=== PATIENT | male | born 1960 | race African-American/Black ===

== ENCOUNTER 2016-07-17 06:09 | Inpatient (IN) | payer MEDICARE, OTHER ==
--- NOTE | ~2016-07-17 | OP ---
Record Of Operation [facility] [address] [place]. [address] NAME: WANDA MARIANO : 62 STATUS : ADM IN PAT#: [id number] AGE: 56 ADM/REG DATE : 07/17/16 MR#: [id number] REPORT SERV DATE: 07/17/16 DICTATED BY: ARJUN ROSALES DATE: 07/17/16 REPORT STATUS : Draft TRANSCRIBED BY: MODL DATE: 07/17/16 DATE OF PROCEDURE: 07/17/2016 SURGEON: Arjun Rosales MD TITLE OF OPERATION: Left laparoscopic radical nephrectomy. PREOPERATIVE DIAGNOSES: 1. Left renal mass. 2. Polycystic kidney disease. 3. End-stage renal disease. POSTOPERATIVE DIAGNOSES: 1. Left renal mass. 2. Polycystic kidney disease. 3. End-stage renal disease. INDICATIONS: Mr. Mariano is a 56-year-old male with multiple renal masses in a nonfunctioning left polycystic kidney. He is here for left laparoscopic radical nephrectomy. ANESTHESIA: General. COMPLICATIONS: None. IMPLANTS: None. SPECIMENS: Left kidney. NARRATIVE: The patient was brought to the operating room, identified by his wristband. General anesthesia was induced, and Ancef was given for preoperative antibiotics. He was placed in the modified left flank position and secured to the bed with pads and tapes. A Vega catheter was not placed as he is anuric. He was then prepped and draped in sterile fashion. The abdomen was insufflated to a pressure of 15 mmHg using a Veress needle. A 12 mm incision was made in his upper left quadrant. A 12 mm port was placed under direct vision. The abdomen was inspected. There was a very large left kidney, and no other obvious abnormalities. A second 12 mm port was placed beneath the costal margin on the left side, and a third 12 mm port was placed in the left lower quadrant. A 15 mm port was placed in the upper midline. The patient was then rotated. The operation was begun by dropping the colon along the white line of Toldt, exposing the retroperitoneum. Initially, the colon was up and lateral to the kidney and actually invisible given the large mass size. Therefore, the initial incision was made through the colonic mesentery. There was no vascular damage at all. The colon was well vascularized. Once I realized this had happened, I took my dissection anteriorly and released the colon along the white line of Toldt, exposing the retroperitoneum. This was reflected inferiorly to expose the aorta. The splenorenal ligaments were sharply divided. The pancreas was reflected off the kidney Record Of Operation [facility] [address] [place]. [address] NAME: WANDA MARIANO : 62 STATUS : ADM IN PAT#: [id number] AGE: 56 ADM/REG DATE : 07/17/16 MR#: [id number] REPORT SERV DATE: 07/17/16 DICTATED BY: ARJUN ROSALES DATE: 07/17/16 REPORT STATUS : Draft TRANSCRIBED BY: MODL DATE: 07/17/16 without damaging the structure. The masses were not upper pole. Therefore, I entered the Gerota's fascia in between the kidney and adrenal gland, and the adrenal gland was spared. Next, we identified the ureter and lifted the ureter up off the psoas muscle. The kidney was lifted off its attachments. All fibrofatty tissue surrounding a lower pole artery was divided with a LigaSure device. The artery was clipped and then stapled. Next, the hilum was dissected free. The hilum was then stapled en bloc with a 35 mm automatic stapler. Next, dissection was carried inferiorly down over the iliacs, where the kidney was lifted up off the iliacs. The ureter was clipped and divided. The lateral attachments of the kidney were then taken with a LigaSure device. The kidney was then free of all attachments and placed into a large EndoCatch bag. Of note, this operation took about four hours. The typical time is about two hours. The increased complexity was due to the incredibly large size of the kidney. Next, the colon was inspected and found to be free from injury. A large mesenteric defect was identified. This was suture closed with a running 3-0 V-Loc suture. Next, the 12 mm medical record assistant ports were sequentially closed with 0 Vicryl sutures using Petey-Delaney devices. The patient was then rotated back to level. The 15 mm port was removed from the supraumbilical area. This port was enlarged at the skin and fascial level, and the kidney was removed in the bag and sent to Pathology for analysis. The wounds were irrigated clear. The fascia was closed with interrupted 0 Monocryl suture in a figure- of-eight fashion. Subcutaneous tissues were closed with a 3-0 Vicryl in an interrupted fashion. Skin was closed with 4-0 Monocryl in a subcuticular fashion. A Dermabond dressing was placed. A TAP block was placed preoperatively. The patient was awoken from anesthesia and transferred to the recovery room in stable condition. There were no complications. JKM/MODL Arjun Rosales MD / [id number] CC: Arjun Rosales MD
[~2016-07-17 06:09] MED LIST: ASAB PO; AUG875 PO; COREG3 PO; FOSRENOL1000 MG PO; LONITEN2.5 PO; NEXIUM40 PO; NORV10 PO; ROCALTROL0.5 MCG PO; TUMSROLL PO
[2016-07-17 06:29] LABS: HEMATOCRIT 38.3 % (40.0-51.0); HEMOGLOBIN 13.3 g/dL (13.6-17.8)
[2016-07-17 06:42] LABS: CALCIUM, SERUM 7.6 MG/DL (8.5-10.4); CHLORIDE, SERUM 100 MMOL/L (96-112); CO2 (CARBON DIOXIDE) 25 MMOL/L (24-34); POTASSIUM, SERUM 4.4 MMOL/L (3.5-5.3); SODIUM, SERUM 139 MMOL/L (135-148)
[2016-07-17 06:43] LABS: BUN (BLOOD UREA NITROGEN) 30 MG/DL (6-23); CREATININE 7.94 MG/DL (0.70-1.30); GFR AFRICAN AMERICAN 8 ML/MIN (>=60); GFR NON AFRICAN AMERICAN 7 ML/MIN (>=60); GLUCOSE, SERUM 125 MG/DL (60-99)
[2016-07-17 13:51] LABS: BASOPHILS 0.1 %; BASOPHILS ABSOLUTE 0.01 10/3/uL (0.0-0.16); EOSINOPHILS 0.2 %; EOSINOPHILS ABSOLUTE 0.02 10/3/uL (0.0-0.53); HEMATOCRIT 34.2 % (40.0-51.0); HEMOGLOBIN 11.8 g/dL (13.6-17.8); IMMATURE GRANULOCYTES 0.3 %; IMMATURE GRANULOCYTES ABSOLUTE 0.04 10/3/uL (0.0-0.11); LYMPHOCYTES 5.3 %; LYMPHOCYTES ABSOLUTE 0.66 10/3/uL (0.67-4.30); MANUAL DIFF NO %; MEAN CORPUS HGB CONC 34.5 g/dL (32.0-36.0); MEAN CORPUSCULAR HEMOGLOB 34.4 pg (26.0-34.0); MEAN CORPUSCULAR VOLUME 99.7 fL (80-100); MEAN PLATELET VOLUME 9.9 fL (9.2-13.0); MONOCYTES ABSOLUTE 0.49 10/3/uL (0.21-1.20); NEUTROPHILS 90.1 %; NEUTROPHILS ABSOLUTE 11.12 10/3/uL (2.02-8.40); PLATELET COUNT 259 10/3/uL (150-400); RBC DISTRIBUTION WIDTH 15.6 % (12.0-16.0); RED CELL COUNT 3.43 10/6/uL (4.7-6.1); WHITE BLOOD CELLS 12.3 10/3/uL (4.5-10.5)
[2016-07-17 14:00] LABS: BUN (BLOOD UREA NITROGEN) 32 MG/DL (6-23); CALCIUM, SERUM 7.5 MG/DL (8.5-10.4); CHLORIDE, SERUM 105 MMOL/L (96-112); CO2 (CARBON DIOXIDE) 24 MMOL/L (24-34); GFR AFRICAN AMERICAN 7 ML/MIN (>=60); GFR NON AFRICAN AMERICAN 6 ML/MIN (>=60); GLUCOSE, SERUM 144 MG/DL (60-99); POTASSIUM, SERUM 5.1 MMOL/L (3.5-5.3); SODIUM, SERUM 143 MMOL/L (135-148)
[2016-07-18 04:57] LABS: BASOPHILS 0.1 %; BASOPHILS ABSOLUTE 0.01 10/3/uL (0.0-0.16); EOSINOPHILS 1.4 %; HEMATOCRIT 35.4 % (40.0-51.0); HEMOGLOBIN 11.8 g/dL (13.6-17.8); IMMATURE GRANULOCYTES 0.3 %; IMMATURE GRANULOCYTES ABSOLUTE 0.02 10/3/uL (0.0-0.11); LYMPHOCYTES 13.7 %; LYMPHOCYTES ABSOLUTE 0.97 10/3/uL (0.67-4.30); MANUAL DIFF NO %; MEAN CORPUS HGB CONC 33.3 g/dL (32.0-36.0); MEAN CORPUSCULAR HEMOGLOB 33.3 pg (26.0-34.0); MEAN PLATELET VOLUME 10.3 fL (9.2-13.0); MONOCYTES 11.3 %; NEUTROPHILS 73.2 %; NEUTROPHILS ABSOLUTE 5.19 10/3/uL (2.02-8.40); PLATELET COUNT 248 10/3/uL (150-400); RBC DISTRIBUTION WIDTH 15.7 % (12.0-16.0); RED CELL COUNT 3.54 10/6/uL (4.7-6.1); WHITE BLOOD CELLS 7.1 10/3/uL (4.5-10.5)
[2016-07-18 05:13] LABS: CHLORIDE, SERUM 98 MMOL/L (96-112); CO2 (CARBON DIOXIDE) 27 MMOL/L (24-34); PHOSPHORUS, SERUM 4.7 MG/DL (2.5-4.5); POTASSIUM, SERUM 4.6 MMOL/L (3.5-5.3)
[2016-07-18 05:19] LABS: BUN (BLOOD UREA NITROGEN) 25 MG/DL (6-23); CREATININE 7.88 MG/DL (0.70-1.30); GFR AFRICAN AMERICAN 8 ML/MIN (>=60); GFR NON AFRICAN AMERICAN 7 ML/MIN (>=60); GLUCOSE, SERUM 99 MG/DL (60-99); SODIUM, SERUM 136 MMOL/L (135-148)
[2016-07-19 05:41] LABS: BASOPHILS 0.2 %; BASOPHILS ABSOLUTE 0.02 10/3/uL (0.0-0.16); EOSINOPHILS 3.4 %; EOSINOPHILS ABSOLUTE 0.28 10/3/uL (0.0-0.53); HEMATOCRIT 37.9 % (40.0-51.0); HEMOGLOBIN 12.2 g/dL (13.6-17.8); IMMATURE GRANULOCYTES 0.1 %; IMMATURE GRANULOCYTES ABSOLUTE 0.01 10/3/uL (0.0-0.11); LYMPHOCYTES 15.2 %; LYMPHOCYTES ABSOLUTE 1.26 10/3/uL (0.67-4.30); MEAN CORPUS HGB CONC 32.2 g/dL (32.0-36.0); MEAN CORPUSCULAR HEMOGLOB 32.4 pg (26.0-34.0); MEAN CORPUSCULAR VOLUME 100.8 fL (80-100); MEAN PLATELET VOLUME 10.4 fL (9.2-13.0); MONOCYTES 12.8 %; MONOCYTES ABSOLUTE 1.06 10/3/uL (0.21-1.20); NEUTROPHILS 68.3 %; NEUTROPHILS ABSOLUTE 5.66 10/3/uL (2.02-8.40); PLATELET COUNT 237 10/3/uL (150-400); RBC DISTRIBUTION WIDTH 15.6 % (12.0-16.0); RED CELL COUNT 3.76 10/6/uL (4.7-6.1); WHITE BLOOD CELLS 8.3 10/3/uL (4.5-10.5)
[2016-07-19 05:46] LABS: CALCIUM, SERUM 8.1 MG/DL (8.5-10.4); CHLORIDE, SERUM 99 MMOL/L (96-112); CO2 (CARBON DIOXIDE) 25 MMOL/L (24-34); GFR AFRICAN AMERICAN 9 ML/MIN (>=60); GFR NON AFRICAN AMERICAN 8 ML/MIN (>=60); GLUCOSE, SERUM 93 MG/DL (60-99); POTASSIUM, SERUM 4.6 MMOL/L (3.5-5.3); SODIUM, SERUM 136 MMOL/L (135-148)
[2016-07-19 05:49] LABS: BUN (BLOOD UREA NITROGEN) 19 MG/DL (6-23); CREATININE 7.37 MG/DL (0.70-1.30)
[2016-07-19 05:52] LABS: MANUAL DIFF NO %
[2016-07-19] MEDS ORDERED: PCET PO (12:23)
[2016-07-19] MEDS ORDERED: DSS PO (12:24)
== END 2016-07-19 18:20 | disposition home or self-care (01) | DRG 656 ==
LOC: SDC/OF 06:09 → PACU 12:53 → 4SO 14:28
PROVIDERS: Urology
PROC: 5A1D60Z (ICD-10-PCS; 2016-07-17)
PROC: 0TT14ZZ Resection of Left Kidney, Percutaneous Endoscopic Approach (ICD-10-PCS; principal; 2016-07-17 07:45)
DX: D41.02 Neoplasm of uncertain behavior of left kidney (principal); N18.6 End stage renal disease; J81.1 Chronic pulmonary edema; Q61.3 Polycystic kidney, unspecified; I15.1 Hypertension secondary to other renal disorders; N28.89 Other specified disorders of kidney and ureter; K21.9 Gastro-esophageal reflux disease without esophagitis; I25.10 Atherosclerotic heart disease of native coronary artery without angina pectoris; F17.210 Nicotine dependence, cigarettes, uncomplicated; Z88.8 Allergy status to other drugs, medicaments and biological substances; Z95.2 Presence of prosthetic heart valve; I65.23 Occlusion and stenosis of bilateral carotid arteries; Z99.2 Dependence on renal dialysis; E87.5 Hyperkalemia
CPT/HCPCS: 36415; 71010; 80048; 80069; 85014; 85018; 85025; 86850; 86900; 86901; 86920; 88307; 88311; 93005; A9270-GY; C1751; G0257; J0360; J0690; J1170; J2250; J2370; J2405; J2710; J2795; J3010; P9045